=== PATIENT | male | born 1955 | race African-American/Black ===

== ENCOUNTER 2021-06-06 08:11 | Emergency (ER) | payer MEDICARE ==
[2021-06-06] MEDS ORDERED: Morphine 4 MG/ML VIAL ONE ×2 (08:54→11:59)
[2021-06-06] MEDS ORDERED: Ondansetron PF 4 MG/2 ML Vial ONE (08:54)
[2021-06-06 09:08] LABS: #Eosinphils 0.1 10x3/uL (0.0-0.5); #Monocytes 0.8 10x3/uL (0.0-1.1); #Neutrophils 5.2 10x3/uL (1.5-8.4); %Basophils 0.3 % (0.0-2.0); %Eosinophils 1.8 % (0.0-6.0); %Lymphocytes 23.1 % (18.0-47.0); %Monocytes 9.6 % (0.0-10.0); %Neutrophils 64.8 % (40.0-75.0); Hemoglobin 14.2 g/dL (13.5-17.5); Mean Corpuscular HGB CONC 32.9 g/dL (32.0-36.0); Mean Corpuscular Hemoglobin 30.1 pg (27.0-33.0); Mean Corpuscular Volume 91.5 fl (81.2-95.1); Mean Platelet Volume 9.7 fl (7.4-10.4); Platelet Count 297 10x3/uL (150-450); RBC Distribution Width 14.7 % (11.5-14.5); Red Blood Cell (RBC) Count 4.72 10x6/uL (4.32-5.72); White Blood Cell (WBC) Count 7.9 10x3/uL (3.5-10.5)
[2021-06-06 09:27] LABS: ALT (SGPT) 77 U/L (8-55); AST (SGOT) 34 U/L (5-34); Albumin 4.3 g/dL (3.4-4.8); Alkaline Phosphatase 102 U/L (40-110); Anion Gap 15 mmol/L (10-20); BUN (Urea Nitrogen) 15 mg/dL (8.4-25.7); Bilirubin, Total 0.3 mg/dL (0.2-1.2); CK (CPK) 192 U/L (30-200); Calc. Creatinine Clearance 0 mL/min (70-130); Carbon Dioxide 24 mmol/L (23-31); Chloride 105 mmol/L (98-107); Globulin 3.2 g/dL (2.4-3.5); Glucose 98 mg/dL (80-115); Magnesium 2.3 mg/dL (1.6-2.6); PTT 25.3 sec (22.0-33.0); Potassium 4.8 mmol/L (3.5-5.1); Protein, Total 7.5 g/dL (5.8-8.1); Prothrombin Time 10.7 sec (9.5-12.1); Sodium 139 mmol/L (136-145)
[2021-06-06 09:52] LABS: D-Dimer Test 1.02 mg/L FEU (0.19-0.50)
[2021-06-07 12:54] LABS: SARS-CoV-2 PCR by NAA Not Detected (NotDetected)
== END 2021-06-06 13:00 | disposition home or self-care (01) ==
LOC: CSHERS 08:11
DX: R91.8 Other nonspecific abnormal finding of lung field (principal); M25.512 Pain in left shoulder; Z20.822 Contact with and (suspected) exposure to COVID-19; E11.9 Type 2 diabetes mellitus without complications; K21.9 Gastro-esophageal reflux disease without esophagitis; J44.9 Chronic obstructive pulmonary disease, unspecified; F17.210 Nicotine dependence, cigarettes, uncomplicated
CPT/HCPCS: 71045; 71275; 80053; 82550; 83735; 84484; 85025; 85379; 85610; 85730; 93005; 94760; 96374; 96375; 96376; 99285; U0003; U0005; 36415; J2270; J2405